=== PATIENT | female | born 1975 | race Caucasian/White ===

== ENCOUNTER 2016-11-20 17:50 | Emergency (ER) | payer BC ==
[~2016-11-20] VITALS: Ht 180.3 cm; Wt 79.7 kg
[~2016-11-20 17:50] MED LIST: BUPR100T4 PO; LEVO150T9 PO; MULT-506 PO
[2016-11-20 18:21] VITALS: TEMP 37.1; Ht 180.3 cm; Wt 79.7 kg
[2016-11-20 19:13] LABS: BASO % 0.3 %; BASO ABS # 0.02 K/uL (0-0.2); COMPLETE YES; EOS % 1.3 %; HEMATOCRIT 38.4 % (37-47); LYMPH % 41.7 %; LYMPH ABS # 2.58 K/uL (1.2-3.4); MEAN CELL VOLUME 98.5 fL (80-100); MEAN CORPUSCULAR HEMOGLOBIN 33.6 pg (25-34); MEAN CORPUSCULAR HGB CONC 34.1 g/dl (32-36); MEAN PLATELET VOLUME 9.9 fL (7.4-10.4); MONO % 6.5 %; NEUT % 50.2 %; PLATELET COUNT 257 K/uL (130-400); WHITE BLOOD COUNT 6.19 K/uL (4.8-10.8)
[2016-11-20 19:24] LABS: URINE APPEARANCE CLEAR (CLEAR); URINE BILIRUBIN NEG (NEG); URINE COLOR YELLOW; URINE NITRITE NEG (NEG); UROBILINOGEN NEG (NEG); ZZUR CULT IF INDIC CLEAN CATCH NO
[2016-11-20 19:27] LABS: MANUAL MICROSCOPIC REQUIRED? NO; REVIEW REQ? NO
[2016-11-20 19:28] LABS: PREG INTERNAL NEGATIVE QC NEG CLEAR BACKGROUND; PREG INTERNAL POSITIVE QC POS CONTROL LINE
[2016-11-20 19:31] LABS: ALT/SGPT 19 U/L (12-78); BLOOD UREA NITROGEN 18 mg/dl (7-18); BUN/CREATININE RATIO 19.9 (10-20); CALCIUM 8.3 mg/dl (8.5-10.1); CARBON DIOXIDE 25 mmol/L (21-32); CHLORIDE 106 mmol/L (98-107); CREATININE 0.88 mg/dl (0.60-1.20); GLUCOSE 92 mg/dl (70-99); POTASSIUM 3.9 mmol/L (3.5-5.1); SODIUM 142 mmol/L (136-145)
[2016-11-20 19:34] LABS: ALKALINE PHOSPHATASE 46 U/L (45-117); AST/SGOT 13 U/L (15-37)
--- NOTE | 2016-11-20 19:41 | DIAGNOSTIC IMAGING REPORT ---
ABDOMEN AND PELVIS CT WITHOUT CONTRAST CT DOSE: 846.07 mGy.cm HISTORY: Right lower quadrant and right flank pain. TECHNIQUE: Multiaxial CT images of the abdomen and pelvis were performed without the use of intravenous and oral contrast according to the standard department stone protocol. COMPARISON STUDY: Renal ultrasound 07/01/2016. Abdominal ultrasound 03/13/2013. FINDINGS: Small fat-containing left-sided Bochdalek hernia. No pneumoperitoneum. No pneumatosis. A 1.8 cm hypodense lesion within the right hepatic lobe. This is indeterminate on this noncontrast study but is likely benign given the long-term stability. The unenhanced gallbladder, pancreas, spleen, adrenal glands, and kidneys are unremarkable. No renal stones or hydronephrosis. Normal bladder. Punctate calcification within the left deep pelvis likely represents a phlebolith. No retroperitoneal lymphadenopathy. A 7 mm hypodense lesion within the fundus of the uterus. This is incompletely characterized on this noncontrast study. Suboptimal evaluation for bowel pathology due to the lack of intravenous and oral contrast. However, there is no definite bowel wall thickening or obstruction. Multiple fluid-filled nondilated loops of small bowel. The appendix is normal in caliber measuring up to 6 mm. IMPRESSION: 1. No renal stones or hydronephrosis. 2. No definite bowel wall thickening or obstruction. 3. Normal appendix. 4. Additional findings as described above. Electronically signed by: Harlan Call M.D. 11/20/2016 7:40 PM Dictated Date/Time: 11/20/2016 7:29 PM
[2016-11-20] MEDS ORDERED: CALC-354 PO (19:48)
[2016-11-20] MEDS ORDERED: KETOROLAC TROMETHAMINE 30 MG/ML VIAL IV STA (21:29)
--- NOTE | 2016-11-20 23:01 | DIAGNOSTIC IMAGING REPORT ---
PELVIC ULTRASOUND, TRANSABDOMINAL AND TRANSVAGINAL HISTORY: right pelvic pain COMPARISON: Abdomen and pelvis CT 11/20/2016. FINDINGS: Uterus: 7.7 x 4.2 x 3.7 cm. A few nabothian cysts. There is a 1 cm cyst at the uterine fundus. Abnormal appearing endometrial canal at the fundus containing a small amount of fluid versus cystic structures which measure up to 1 cm. Remaining portions of the endometrial canal contains small amount of fluid and is heterogeneous. Endometrial stripe: Right ovary: Normal in size and demonstrates normal color flow. There is a 9 mm paraovarian cyst. Left ovary: Normal in size and demonstrates normal color flow. Miscellaneous:No pelvic free fluid. IMPRESSION: 1. Abnormal appearing endometrium which demonstrates small cystic foci versus fluid near the fundus measuring up to 1 cm. There is also a 1 cm cystic structure at the uterine fundus. These are nonspecific but could represent the appearance of focal adenomyosis. Follow-up gynecological consultation and a 6-8 week pelvic ultrasound is recommended to ensure resolution. 2. The ovaries are within normal limits. Electronically signed by: Harlan Call M.D. 11/20/2016 10:59 PM Dictated Date/Time: 11/20/2016 10:54 PM
[2016-11-21 01:09] VITALS: BP 129/77; PULSE 63; O2SAT 98
--- NOTE | 2016-11-21 03:06 | EMERGENCY ROOM VISIT NOTE ---
History Report prepared by Yolie: Ivelisse Mohr Under the Supervision of: Dr. Declan Ramey M.D. First contact with patient: 18:25 Chief Complaint: ABDOMINAL PAIN Stated Complaint: ABDOMINAL PAIN History of Present Illness The patient is a 41 year old female who presents to the Emergency Room with complaints of intermittent right lower abdominal pain starting about a week ago and worsening today. She describes it to be a stabbing pain. She states her abdomen becomes "hard" when the pain comes on. At its worst, she reports a pain intensity of 9/10. She currently rates a pain intensity of 6.5-7/10. She also reports a mildly bloated abdomen. She has some pain radiation to the right hip. She reports some mild tenderness in the right lower abdominal area. She had mild nausea earlier today. She also complains of chills. She notes a loss of appetite. Pt denies LOC, headache, fevers, diaphoresis, visual changes, neck pain, chest pain, breathing difficulties, vomiting, back pain, melena, hematochezia, urinary symptoms, numbness, weakness, lymphadenopathy, rash, or other complaints. She had an ablation 2 years ago. She has a family history of kidney stones and gallbladder problems. She denies any personal history of appendectomy or cholecystectomy. Source of History: patient Onset: about a week ago Position: abdomen (right lower quadrant) Symptom Intensity: 6.5-7/10 Quality: stabbing Timing: intermittent Associated Symptoms: + chills, + nausea Review of Systems See HPI for pertinent positives and negatives. A total of ten systems were reviewed and were otherwise negative. Past Medical & Surgical Medical Problems: (1) Asthma (2) Deliveries by (3) Hypothyroid (4) Meniere disease (5) Pneumonia Family History FH: hypertension FH: kidney disease Social History Smoking Status: Never Smoker Alcohol Use: occasionally Marital Status: Housing Status: lives with family Occupation Status: unemployed Current/Historical Medications Scheduled Bupropion Hcl (Wellbutrin), 100 MG PO DAILY Calcium Carbonate-Cholecalcife (Caltrate 600+D), 1 TAB PO DAILY Levothyroxine Sodium (Levothyroxine Sodium), 150 MG PO DAILY Multivitamin (Multivitamin), 1 TAB PO DAILY Allergies Coded Allergies: Latex (Verified Allergy, Intermediate, blisters, 11/20/16) Physical Exam Vital Signs Date Time Temp Pulse Resp B/P Pulse Ox O2 Delivery O2 Flow Rate FiO2 11/21/16 01:09 63 19 129/77 98 11/21/16 00:13 63 19 129/77 98 Room Air 11/20/16 21:38 68 19 120/69 100 Room Air 11/20/16 19:58 68 19 119/67 100 Room Air 11/20/16 18:21 37.1 72 20 149/81 100 Room Air Physical Exam GENERAL: Awake, alert, well-appearing, in no distress HENT: Normocephalic, atraumatic. Oropharynx unremarkable. EYES: Normal conjunctiva. Sclera non-icteric. NECK: Supple. No nuchal rigidity. FROM. No JVD. RESPIRATORY: Clear to auscultation. CARDIAC: Regular rate, normal rhythm. Extremities warm and well perfused. Pulses equal. ABDOMEN: Soft, non-distended. Right lower quadrant tenderness with minimal left lower quadrant tenderness, minimal rebound, no guarding. No masses. RECTAL: Deferred. PELVIC EXAM: Normal female anatomy, normal appearing cervix, no adnexal tenderness, no cervical motion tenderness, no discharge. MUSCULOSKELETAL: Chest examination reveals no tenderness. The back is symmetrical on inspection without obvious abnormality. There is no CVA tenderness to palpation. No joint edema. LOWER EXTREMITIES: Calves are equal size bilaterally and non-tender. No edema. No discoloration. NEURO: Normal sensorium. No sensory or motor deficits noted. SKIN: No rash or jaundice noted. Medical Decision & Procedures ER Provider Diagnostic Interpretation: US and CT: Radiology results as stated below per my review and radiologist interpretation PELVIC ULTRASOUND, TRANSABDOMINAL AND TRANSVAGINAL HISTORY: right pelvic pain COMPARISON: Abdomen and pelvis CT 11/20/2016. FINDINGS: Uterus: 7.7 x 4.2 x 3.7 cm. A few nabothian cysts. There is a 1 cm cyst at the uterine fundus. Abnormal appearing endometrial canal at the fundus containing a small amount of fluid versus cystic structures which measure up to 1 cm. Remaining portions of the endometrial canal contains small amount of fluid and is heterogeneous. Endometrial stripe: Right ovary: Normal in size and demonstrates normal color flow. There is a 9 mm paraovarian cyst. Left ovary: Normal in size and demonstrates normal color flow. Miscellaneous:No pelvic free fluid. IMPRESSION: 1. Abnormal appearing endometrium which demonstrates small cystic foci versus fluid near the fundus measuring up to 1 cm. There is also a 1 cm cystic structure at the uterine fundus. These are nonspecific but could represent the appearance of focal adenomyosis. Follow-up gynecological consultation and a 6-8 week pelvic ultrasound is recommended to ensure resolution. 2. The ovaries are within normal limits. Electronically signed by: Harlan Call M.D. 11/20/2016 10:59 PM Dictated Date/Time: 11/20/2016 10:54 PM ABDOMEN AND PELVIS CT WITHOUT CONTRAST CT DOSE: 846.07 mGy.cm HISTORY: Right lower quadrant and right flank pain. TECHNIQUE: Multiaxial CT images of the abdomen and pelvis were performed without the use of intravenous and oral contrast according to the standard department stone protocol. COMPARISON STUDY: Renal ultrasound 07/01/2016. Abdominal ultrasound 03/13/2013. FINDINGS: Small fat-containing left-sided Bochdalek hernia. No pneumoperitoneum. No pneumatosis. A 1.8 cm hypodense lesion within the right hepatic lobe. This is indeterminate on this noncontrast study but is likely benign given the long-term stability. The unenhanced gallbladder, pancreas, spleen, adrenal glands, and kidneys are unremarkable. No renal stones or hydronephrosis. Normal bladder. Punctate calcification within the left deep pelvis likely represents a phlebolith. No retroperitoneal lymphadenopathy. A 7 mm hypodense lesion within the fundus of the uterus. This is incompletely characterized on this noncontrast study. Suboptimal evaluation for bowel pathology due to the lack of intravenous and oral contrast. However, there is no definite bowel wall thickening or obstruction. Multiple fluid-filled nondilated loops of small bowel. The appendix is normal in caliber measuring up to 6 mm. IMPRESSION: 1. No renal stones or hydronephrosis. 2. No definite bowel wall thickening or obstruction. 3. Normal appendix. 4. Additional findings as described above. Electronically signed by: Harlan Call M.D. 11/20/2016 7:40 PM Dictated Date/Time: 11/20/2016 7:29 PM Laboratory Results 11/20/16 19:00 Red Blood Count 3.90, Mean Corpuscular Volume 98.5, Mean Corpuscular Hemoglobin 33.6, Mean Corpuscular Hemoglobin Concent 34.1, Mean Platelet Volume 9.9, Neutrophils (%) (Auto) 50.2, Lymphocytes (%) (Auto) 41.7, Monocytes (%) (Auto) 6.5, Eosinophils (%) (Auto) 1.3, Basophils (%) (Auto) 0.3, Neutrophils # (Auto) 3.11, Lymphocytes # (Auto) 2.58, Monocytes # (Auto) 0.40, Eosinophils # (Auto) 0.08, Basophils # (Auto) 0.02 11/20/16 19:00 Test 11/20/16 19:00 White Blood Count 6.19 K/uL (4.8-10.8) Red Blood Count 3.90 M/uL (4.2-5.4) Hemoglobin 13.1 g/dL (12.0-16.0) Hematocrit 38.4 % (37-47) Mean Corpuscular Volume 98.5 fL (80-100) Mean Corpuscular Hemoglobin 33.6 pg (25-34) Mean Corpuscular Hemoglobin Concent 34.1 g/dl (32-36) Platelet Count 257 K/uL (130-400) Mean Platelet Volume 9.9 fL (7.4-10.4) Neutrophils (%) (Auto) 50.2 % Lymphocytes (%) (Auto) 41.7 % Monocytes (%) (Auto) 6.5 % Eosinophils (%) (Auto) 1.3 % Basophils (%) (Auto) 0.3 % Neutrophils # (Auto) 3.11 K/uL (1.4-6.5) Lymphocytes # (Auto) 2.58 K/uL (1.2-3.4) Monocytes # (Auto) 0.40 K/uL (0.11-0.59) Eosinophils # (Auto) 0.08 K/uL (0-0.5) Basophils # (Auto) 0.02 K/uL (0-0.2) RDW Standard Deviation 42.2 fL (36.4-46.3) RDW Coefficient of Variation 11.9 % (11.5-14.5) Immature Granulocyte % (Auto) 0.0 % Immature Granulocyte # (Auto) 0.00 K/uL (0.00-0.02) Urine Color YELLOW Urine Appearance CLEAR (CLEAR) Urine pH 7.0 (4.5-7.5) Urine Specific Hulbert 1.010 (1.000-1.030) Urine Protein NEG (NEG) Urine Glucose (UA) NEG (NEG) Urine Ketones NEG (NEG) Urine Occult Blood NEG (NEG) Urine Nitrite NEG (NEG) Urine Bilirubin NEG (NEG) Urine Urobilinogen NEG (NEG) Urine Leukocyte Esterase NEG (NEG) Urine Test NEG (NEG) Anion Gap 11.0 mmol/L (3-11) Est Creatinine Clear Calc Drug Dose 94.9 ml/min Estimated GFR () 95.3 Estimated GFR (Non- 82.2 BUN/Creatinine Ratio 19.9 (10-20) Calcium Level 8.3 mg/dl (8.5-10.1) Total Bilirubin 0.3 mg/dl (0.2-1) Direct Bilirubin < 0.1 mg/dl (0-0.2) Aspartate Amino Transf (AST/SGOT) 13 U/L (15-37) Alanine Aminotransferase (ALT/SGPT) 19 U/L (12-78) Alkaline Phosphatase 46 U/L (45-117) Total Protein 7.2 gm/dl (6.4-8.2) Albumin 3.9 gm/dl (3.4-5.0) Lipase 147 U/L (73-393) Laboratory results reviewed by me Medications Administered Medications (Trade) Dose Ordered Sig/Sheila Route Start Time Stop Time Status Last Admin Dose Admin Ketorolac Tromethamine (Toradol Inj) 10 mg NOW STAT IV 11/20/16 21:29 11/20/16 21:30 DC 11/20/16 22:00 10 MG ED Course 1824: The patient was evaluated in room B06. A complete history and physical exam was performed. 2008: I reevaluated the patient who is doing. I updated her. 2128: Toradol Inj 10 mg IV 0045: I reevaluated the patient. Discussed results and discharge instructions: She verbalized understanding and agreement. The patient is ready for discharge. Medical Decision Triage Nursing notes reviewed. The patient's presentation and history were concerning for right lower quadrant abdominal pain. Etiologies such as appendicitis, diverticulitis, obstruction, inflammatory bowel disease, renal colic, PUD, biliary pathology, pancreatitis, mesenteric ischemia, aortic pathology, infections, genitourinary, UTI, perforated viscus, ectopic , ovarian torsion, ovarian cyst, endometritis, tubo-ovarian abscess, as well as others were entertained. The patient was evaluated. She declined analgesia. Blood work and urinalysis were performed. Imaging was ordered. The patient had unremarkable CBC, chemistry panel, LFTs, lipase, urinalysis and test. The patient underwent CT imaging which revealed no evidence of stone or significant intra- abdominal process. On reassessment the patient was doing well and I discussed further imaging with ultrasound. The patient was in agreement. The patient did request some ibuprofen however she was given Toradol as the workup was still in progress. After this she was assessed and was feeling better. The patient had an unremarkable ultrasound except for some abnormal appearance to the endometrium. The patient has had an ablation. She denies any vaginal symptoms recently. The patient was still having some discomfort in the lower abdominal area. Mostly in the right lower and midline. She has had this waxing and waning for over a week. I discussed the need for pelvic examination. This was performed. The patient had no significant abnormal findings on pelvic examination. No cervical motion tenderness. No adnexal tenderness. The exact etiology of her symptoms is not obvious at this time. I discussed the possibilities. She will need close follow-up with her primary physician as well as her [employer]. The patient will call the offices later this morning when they open. If she worsens in any way she will be back. I discussed conservative management with ibuprofen and Tylenol. The patient felt comfortable.I gave my usual and customary discussion regarding this issue. By the evaluation outlined above other emergent etiologies such as those listed in the differential, as well as others, were deemed relatively unlikely. The patient was informed about the findings as listed above. All questions were answered and she was pleased with the treatment. Return instructions were outlined and the patient was discharged in stable condition. The patient was referred to her PCP and [employer] for follow-up for a recheck of the current condition. The chart was completed utilizing [employer] voice recognition software. Grammatical errors, random word insertions, pronoun errors, and incomplete sentences are an occasional consequence of this system due to software limitations, ambient noise, and hardware issues. Any formal questions or concerns about the content, text, or information contained within the body of this dictation should be directly addressed to the physician for clarification. Impression Primary Impression: Lower abdominal pain Scribe Attestation The scribe's documentation has been prepared under my direction and personally reviewed by me in its entirety. I confirm that the note above accurately reflects all work, treatment, procedures, and medical decision making performed by me. Departure Information Dispostion Home / Self-Care Referrals Karyn Kaye D.O. (PCP) Forms Call Back Authorization, HOME CARE DOCUMENTATION FORM, IMPORTANT VISIT INFORMATION Patient Instructions My [facility] Additional Instructions ABDOMINAL PAIN INSTRUCTIONS: Ibuprofen(Motrin, Advil) may be used for fever or pain. Use 600mg every six hours as needed. Take with food. Avoid using more than 2400mg in a 24 hour period. Do not use 2400mg per day for more than three consecutive days without physician direction. Prolonged inappropriate use can lead to stomach upset or ulcers. (AND/OR) Acetaminophen(Tylenol) may be used for fever or pain. Use 1000mg every six hours as needed. Avoid using more than 4000mg in a 24 hour period. Rest and drink plenty of fluids as tolerated. Slow sips of water or sports drinks are recommended instead of large amounts all at once. Continue current medications. Return to the ER immediately for worsening or persistent abdominal pain, vomiting, fevers, chest pains, difficulty breathing, black or bloody stools, worsening of your condition, or as needed. Follow up with your primary physician and [employer] physician tomorrow for a recheck of your current condition.
== END 2016-11-21 01:11 | disposition home or self-care (01) ==
LOC: C.EDB 17:51
DX: R10.31 Right lower quadrant pain (principal); J45.909 Unspecified asthma, uncomplicated; E03.9 Hypothyroidism, unspecified; H81.09 Meniere's disease, unspecified ear; Z79.899 Other long term (current) drug therapy

== ENCOUNTER → 2017-09-20 | Outpatient (CLI) | payer BC ==
[~2017-09-20] MED LIST changes: +CALC-354 PO
--- NOTE | 2017-09-20 15:17 | MAMMOGRAPHY REPORT ---
BILATERAL DIGITAL SCREENING MAMMOGRAM TOMOSYNTHESIS WITH CAD: 09/20/2017 CLINICAL HISTORY: Routine screening. Patient has no complaints. TECHNIQUE: Breast tomosynthesis in addition to standard 2D mammography was performed. Current study was also evaluated with a Computer Aided Detection (CAD) system. COMPARISON: Comparison is made to exams dated: 10/23/2015 mammogram and 10/23/2015 ultrasound - [facility]. BREAST COMPOSITION: The tissue of both breasts is heterogeneously dense, which may obscure small mas ses. FINDINGS: No suspicious masses, calcifications, or areas of architectural distortion are noted in ei ther breast. There has been no significant interval change compared to prior exams. Right lateral br east asymmetries on the cc view have the appearance of normal fibroglandular tissue on the tomosynthe sis images; the asymmetries are felt to be more prominent to the 2016 exam due to differences in posi tioning of the breast and nipple between the two exams. IMPRESSION: ACR BI-RADS CATEGORY 2: BENIGN There is no mammographic evidence of malignancy. A 1 year screening mammogram is recommended. The pa tient will receive written notification of the results. Approximately 10% of breast cancers are not detected with mammography. A negative mammographic report should not delay biopsy if a clinically suggestive mass is present. Guerita Gibson M.D. /:09/20/2017 12:28:38 Chemist Intern: Vivienne BARROSO(Jonas)([place]), [facility] letter sent: Normal 1/2 BI-RADS Code: ACR BI-RADS Category 2: Benign
== END | disposition home or self-care (01) ==
LOC: C.MAMM 10:08
PROVIDERS: ATTEND Obstetrics & Gynecology
DX: Z12.31 Encounter for screening mammogram for malignant neoplasm of breast (principal)

== ENCOUNTER → 2018-02-09 | Outpatient (CLI) | payer OTHER ==
--- NOTE | 2018-02-09 13:25 | DIAGNOSTIC IMAGING REPORT ---
RIGHT GROIN ULTRASOUND CLINICAL HISTORY: Melanoma in situ. Possible right inguinal lymphadenopathy. COMPARISON STUDY: CT of the abdomen and pelvis November 20, 2016. TECHNIQUE: Targeted sonography of the right groin was performed. FINDINGS: Sonography reveals several benign appearing right inguinal lymph nodes which measure up to 2 x 1.6 x 1.6 cm. Each node has a thin cortex with fatty hilum. No pathologically enlarged lymph nodes are present. IMPRESSION: No suspicious right inguinal lymph nodes by sonography. Multiple morphologically benign lymph nodes. Clinical follow up to ensure stability is recommended. If interval enlargement, repeat ultrasound is recommended. Electronically signed by: Luis Daniel García M.D. 02/09/2018 1:23 PM Dictated Date/Time: 02/09/2018 1:21 PM
== END | disposition home or self-care (01) ==
LOC: C.ULTR 12:48
PROVIDERS: ATTEND Dermatology
DX: R59.9 Enlarged lymph nodes, unspecified (principal)